=== PATIENT | female | born 1935 | race American Indian/Alaskan Native ===

== ENCOUNTER 2019-03-23 10:12 | Emergency (ER) | payer MEDICARE ==
[2019-03-23] MEDS ORDERED: CATAPRES PO ONE (12:02)
--- NOTE | 2019-03-23 12:03 | Emergency Department Report ---
HPI - General Chief Complaint: Dental/Oral Time Seen by Provider: 03/23/19 11:42 - HPI HPI: Room 3 The patient is a 83-year-old female presenting with chief complaint of dysphagia. The patient states for the past 2 weeks whenever she eats solid foods and feels as though it does not go down easily. The patient states she has to drink water in order to help the food go down. The patient states she had the same problem in 2016 after a cervical fusion for her symptoms have improved. She denies nausea or vomiting. Patient denies cough with meals. Patient denies history of fever. Patient states she has not yet seen her gas plant operator for these symptoms. Location: [See above] Duration: [See above] Quality: [See above] Severity: [See above] Modifying factors: [see above] Context: [see above] Mode of transportation: [not driving] ED Past Medical Hx - Past Medical History Hx Hypertension: Yes Hx Diabetes: Yes (borderline) Hx Arthritis: Yes - Surgical History Additional Surgical History: Bilateral carotid endarterectomy, thyroidectomy, cervical fusion (2015) - Family History Family history: no significant - Social History Smoking Status: Former Smoker (none 32 years) Substance Use Type: None - Medications Home Medications: Home Medications Medication Instructions Recorded Confirmed Last Taken Type Clopidogrel [Plavix] 75 mg PO QDAY 03/23/19 03/23/19 Unknown History Ergocalciferol [Vitamin D2] 1 cap PO QMONTH 03/23/19 03/23/19 Unknown History Folic Acid 0.4 mg PO QDAY 03/23/19 03/23/19 Unknown History amLODIPine [Norvasc] 5 mg PO DAILY 03/23/19 03/23/19 Unknown History diazePAM TAB [Valium] 5 mg PO PRN 03/23/19 03/23/19 Unknown History traMADol [Ultram] 50 mg PO Q4HR PRN 03/23/19 03/23/19 Unknown History ED Review of Systems ROS: Stated complaint: THROAT/HARD TO SWOLLOW Other details as noted in HPI Constitutional: no symptoms reported. denies: fever Eyes: denies: eye pain ENT: other (dysphagia) Respiratory: no symptoms reported. denies: cough Cardiovascular: denies: chest pain Endocrine: no symptoms reported Gastrointestinal: denies: abdominal pain, nausea, vomiting Genitourinary: denies: dysuria Musculoskeletal: denies: back pain Neurological: denies: headache Physical Exam - Physical Exam Vital Signs: Vital Signs 03/23/19 03/23/19 10:35 11:12 Temperature 98.1 F Pulse Rate 78 77 Respiratory 16 16 Rate Blood Pressure 208/117 184/74 [Right] O2 Sat by Pulse 98 98 Oximetry Physical Exam: GENERAL: The patient is well-developed well-nourished female lying on stretcher not appearing to be in acute distress. [] HEENT: Normocephalic. Atraumatic. Extraocular motions are intact. Patient has moist mucous membranes. NECK: Supple. No meningitic signs are noted. There is no stridor CHEST/LUNGS: Clear to auscultation. There is no respiratory distress noted. HEART/CARDIOVASCULAR: Regular. There is no tachycardia. There is no gallop rub or murmur. ABDOMEN: Abdomen is soft, nontender. Patient has normal bowel sounds. There is no abdominal distention. SKIN: There is no rash. There is no edema. There is no diaphoresis. NEURO: The patient is awake, alert, and oriented. The patient is cooperative. The patient has normal speech MUSCULOSKELETAL: There is no evidence of acute injury. ED Course Vital Signs 03/23/19 03/23/19 10:35 11:12 Temperature 98.1 F Pulse Rate 78 77 Respiratory 16 16 Rate Blood Pressure 208/117 184/74 [Right] O2 Sat by Pulse 98 98 Oximetry - Consultations Consultation #1: 03/23/19 12:14 GI paged 03/23/19 12:32 Case discussed with Sanjuana-recommends esophagram-if negative have patient follo w-up as an outpatient and start on soft/liquid diet 03/23/19 14:15 GI paged 03/23/19 14:20 Esophagram results discussed with Sanjuana- recommends soft/liquid diet and follow-up with Dr. Rodriguez as an outpatient ED Medical Decision Making - Lab Data Result diagrams: 03/23/19 13:19 03/23/19 12:42 Laboratory Tests 03/23/19 03/23/19 12:42 13:19 WBC 6.4 RBC 4.42 Hgb 12.9 Hct 39.8 MCV 90 MCH 29 MCHC 33 RDW 14.6 Plt Count 217 Lymph % (Auto) Crane Rigger Snyder % (Auto) Crane Rigger Eos % (Auto) Crane Rigger Baso % (Auto) Crane Rigger Lymph # Crane Rigger Snyder # Crane Rigger Eos # Crane Rigger Baso # Crane Rigger Seg Neutrophils % Crane Rigger Seg Neutrophils # Crane Rigger Sodium 140 Potassium 4.3 Chloride 103.6 Carbon Dioxide 23 Anion Gap 18 BUN 32 H Creatinine 1.0 Estimated GFR > 60 BUN/Creatinine Ratio 32 Glucose 112 H Calcium 9.7 Magnesium 2.10 - Radiology Data Radiology results: report reviewed (esophagram), image reviewed (esophagram) [facility] [address] [place] [address] Fluoroscopy Report Signed Patient: VIVEK ROCHA MR#: [id number] : 1935 Acct:[id number] Age/Sex: 83 / F ADM Date: 03/23/19 Loc: ED Attending Dr: Ordering Physician: CHRISTOPHER TONEY MD Date of Service: 03/23/19 Procedure(s): FL barium swallow (esophogram) Accession Number(s): [id number] cc: CHRISTOPHER TONEY MD Fluoro Time In Minutes: 1.5 BARIUM SWALLOW HISTORY: Dysphagia FINDINGS: The esophagus is normal caliber and mucosal pattern throughout. There is no evidence for ring, web, mass or abnormal dilatation. No hiatal hernia or reflux was witnessed during this exam. Mild vallecular stasis of the contrast agent was demonstrated throughout this exam. The contrast eventually cleared after 2-3 swallows. Normal motility in the esophagus. IMPRESSION: Unremarkable esophagus. Vallecular stasis was identified. Consider consultation with speech therapy. Fluoroscopy time: 1.5 minutes. Fluoroscopic images: 28. Signer Name: Markell Gray Jr, MD Signed: 03/23/2019 1:57 PM Workstation Name: [id number] Transcribed By: TTR Dictated By: MARKELL GRAY JR, MD Electronically Au thenticated By: MARKELL GRAY JR, MD Signed Date/Time: 03/23/19 135 DD/ 1355 TD/TT: Critical care attestation.: If time is entered above; I have spent that time in minutes in the direct care of this critically ill patient, excluding procedure time. ED Disposition Clinical Impression: Dysphagia Disposition: DC-01 TO HOME OR SELFCARE Is pt being admited?: No Does the pt Need Aspirin: No Condition: Stable Instructions: Chronic Dysphagia (ED), Soft Diet (ED), Clear Liquid Diet (ED) Additional Instructions: Return to the emergency department immediately should you develop worsening symptoms, fever, inability to tolerate food or liquid or any other concerns. Referrals: STEPHANIA RODRIGUEZ MD [Staff Physician] - [facility] (Dr. Rodriguez is a gas plant operator. Please follow up with him for further evaluation) Time of Disposition: 14:22
[2019-03-23 13:05] VITALS: BP 119/65
[2019-03-23 13:15] LABS: BUN/Creatinine Ratio 32; Blood Urea Nitrogen 32 mg/dL (7-17); Calcium 9.7 mg/dL (8.4-10.2); Hemolysis Index 6
[2019-03-23 13:36] LABS: Hematocrit 39.8 % (30.3-42.9); Hemoglobin 12.9 gm/dl (10.1-14.3); Mean Corpuscular HGB Conc 33 % (30-34); Mean Corpuscular Volume 90 fl (79-97); Platelet Count 217 K/mm3 (140-440); Red Blood Count 4.42 M/mm3 (3.65-5.03); Red Cell Distribution Width 14.6 % (13.2-15.2)
--- NOTE | 2019-03-23 14:01 | Fluoroscopy Report ---
BARIUM SWALLOW HISTORY: Dysphagia FINDINGS: The esophagus is normal caliber and mucosal pattern throughout. There is no evidence for ring, web, m ass or abnormal dilatation. No hiatal hernia or reflux was witnessed during this exam. Mild vallecular stasis of the contrast agent was demonstrated throughout this exam. The contrast even tually cleared after 2-3 swallows. Normal motility in the esophagus. IMPRESSION: Unremarkable esophagus. Vallecular stasis was identified. Consider consultation with speech therapy. Fluoroscopy time: 1.5 minutes. Fluoroscopic images: 28. Signer Name: Markell Gray Jr, MD Signed: 03/23/2019 1:57 PM Workstation Name: [id number]
== END 2019-03-23 14:36 | disposition home or self-care (01) ==
LOC: ED 10:12
DX: R13.10 Dysphagia, unspecified (principal); I10 Essential (primary) hypertension; E11.9 Type 2 diabetes mellitus without complications; M19.90 Unspecified osteoarthritis, unspecified site; Z87.891 Personal history of nicotine dependence; Z98.890 Other specified postprocedural states
CPT/HCPCS: 36415; 74220; 80048; 83735; 85025